=== PATIENT | female | born 1960 | race Caucasian/White ===

== ENCOUNTER 2016-12-13 06:29 | Day surgery (SDC) | payer BC ==
[~2016-12-13] VITALS: Ht 160 cm; Wt 78.0 kg
[~2016-12-13 06:29] MED LIST: BENICAR5 MG PO; CRESTOR10 MG PO; DAILY MULTIPLE1 EACH PO; MOVE FREE JOIN1 EACH PO
[2016-12-13 07:02] VITALS: BP 123/75
[2016-12-13 13:25] VITALS: BP 102/59
[2016-12-13 14:20] VITALS: BP 104/56
[2016-12-13 15:25] VITALS: BP 109/62
[2016-12-13 19:39] VITALS: BP 116/59
[2016-12-13 23:20] VITALS: BP 115/67
[2016-12-14 03:51] VITALS: BP 120/64
[2016-12-14 07:34] VITALS: BP 120/61
== END 2016-12-14 10:18 | disposition home or self-care (01) ==
LOC: SDC 06:29 → 2SOUTH 10:45 → SDC 13:37 → 2EASTP 15:19
DX: J35.01 Chronic tonsillitis (principal); G47.30 Sleep apnea, unspecified; R06.83 Snoring; G47.8 Other sleep disorders; R51 Headache; I10 Essential (primary) hypertension; E66.9 Obesity, unspecified; Z68.30 Body mass index [BMI] 30.0-30.9, adult
CPT/HCPCS: 88304; G0378; J0131; J0171; J0690; J1100; J1170; J2250; J2405; J3010; J7050; Q0175; S0020